=== PATIENT | male | born 2000 | race Caucasian/White ===

== ENCOUNTER → 2024-10-15 11:07 | Outpatient (CLI) | payer OTHER, SELFPAY ==
[2024-10-15 11:43] LABS: Add Manual Diff / Slide Review NO; Basophils Absolute Auto 100 /uL (0-100); Basophils Percent Auto 0.8 % (0-2); Eosinophils Absolute Auto 700 /uL (0-450); Eosinophils Percent Auto 9.1 % (2-4); Hematocrit 38.3 % (41-53); Hemoglobin 13.2 g/dL (13.5-17.5); Lymphocytes Absolute Auto 2300 /uL (1100-4500); Lymphocytes Percent Auto 31.4 % (25-40); Mean Corpuscular HGB Conc 34.4 % (30-36); Mean Corpuscular Hemoglobin 32.3 PG (26-34); Mean Corpuscular Volume 93.8 fL (80-100); Monocytes Absolute Auto 400 /uL (0-900); Monocytes Percent Auto 5.4 % (3-14); Neutrophils Absolute Auto 3900 /uL (1500-7000); Neutrophils Percent Auto 53.3 % (50-75); Platelet Count 287 X10^3/uL (150-400); Red Blood Cell Count 4.08 X10^6/uL (4.5-5.9); Red Cell Distribution Width 16.1 % (11.6-14.8); White Blood Cell Count 7.2 X10^3/uL (4.5-11.0)
[2024-10-15 12:00] LABS: HEMOLYSIS < 15 (0-50); Iron 70 ug/dL (49-181)
[2024-10-15 12:13] LABS: Percent Iron Saturation 20 % (20-50); Total Iron Binding Capacity 345 ug/dL (261-462); Transferrin 264 mg/dL (206-381)
[2024-10-15 12:40] LABS: Ferritin 20 ng/mL (18-464)
== END ==
PROVIDERS: Family Provider Family Medicine; PCP Preventive Medicine Occupational Medicine; Referring Provider Internal Medicine Gastroenterology; Visit Provider Internal Medicine Gastroenterology
DX: D50.9 Iron deficiency anemia, unspecified (principal)
CPT/HCPCS: 36415; 82728; 83540; 83550; 85025

== ENCOUNTER → 2025-01-19 13:03 | Outpatient (CLI) | payer OTHER, SELFPAY ==
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
== END ==
PROVIDERS: Family Provider Family Medicine; PCP Family Medicine; Referring Provider Internal Medicine Gastroenterology; Visit Provider Internal Medicine Gastroenterology
DX: R10.84 Generalized abdominal pain (principal); M62.08 Separation of muscle (nontraumatic), other site; Z87.828 Personal history of other (healed) physical injury and trauma
CPT/HCPCS: 74177; Q9967